=== PATIENT | female | born 1935 | race Caucasian/White ===

== ENCOUNTER → 2018-09-15 | Outpatient (CLI) | payer MEDICARE, OTHER ==
[~2018-09-15] MED LIST: AMOXICILLIN 8751 TAB PO; ASPI325T6 PO; CELEXA 20MG20 MG/TAB PO; COLACE 100100 MG/CAP PO; DULCOLAX S10 MG/SUPP RC; FERROUS SU325 MG/TAB PO; HCTZ 25MG TAB25 MG PO; LAMISIL250 MG PO; LIPITOR20 MG PO; NORCO 325 MG-51 TAB PO; NORVASC 10MG10 MG PO; OMNICEF 300MG300 MG PO; OYSCO 500500 M1 PO; TYLENOL 325MG325 MG PO
== END ==
LOC: MC.RAD 10:45
DX: Z12.31 Encounter for screening mammogram for malignant neoplasm of breast (principal)

== ENCOUNTER 2019-11-14 15:55 | Emergency (ER) | payer MEDICARE ==
[~2019-11-14] VITALS: Ht 162.6 cm; Wt 59.1 kg
[2019-11-14 15:59] VITALS: TEMP 97.1
[2019-11-14] MEDS ORDERED: WELLBUTRIN SR150 M1 PO (17:07)
[2019-11-14] MEDS ORDERED: NAMENDA XR 28MG PO (17:08)
[2019-11-14] MEDS ORDERED: ARICEPT 5MG PO (17:08)
[2019-11-14] MEDS ORDERED: CALCIUM CARBON650 M2 PO (17:09)
[2019-11-14] MEDS ORDERED: MULTI VITAMINS1 TAB PO (17:10)
[2019-11-14] MEDS ORDERED: FLAXSEED OIL1000 MG PO (17:10)
[2019-11-14] MEDS ORDERED: ASPI325T6 PO (18:29)
[2019-11-14] MEDS ORDERED: NORVASC2.5 MG PO (18:29)
[2019-11-14 19:57] VITALS: BP 165/105; PULSE 95
== END 2019-11-14 18:48 | disposition home or self-care (01) ==
LOC: COL.ER 15:55 → EDBD 15:56 → COL.ER 15:56
DX: S09.90XA Unspecified injury of head, initial encounter (principal); S70.01XA Contusion of right hip, initial encounter; Z79.82 Long term (current) use of aspirin; W17.89XA Other fall from one level to another, initial encounter; Y92.009 Unspecified place in unspecified non-institutional (private) residence as the place of occurrence of the external cause

== ENCOUNTER 2022-02-09 21:26 | Emergency (ER) | payer MEDICARE ==
[~2022-02-09] VITALS: Ht 154.9 cm; Wt 61.4 kg
[~2022-02-09 21:26] MED LIST changes: +ARICEPT 5MG PO; +CALCIUM CARBON650 M2 PO; +FLAXSEED OIL1000 MG PO; +MULTI VITAMINS1 TAB PO; +NAMENDA XR 28MG PO; +NORVASC2.5 MG PO; +WELLBUTRIN SR150 M1 PO
[2022-02-09 22:02] VITALS: TEMP 97
[2022-02-09 22:27] LABS: BASO % 0.5 % (0.0-2.0); EOS # 0.2 K/mm3 (0.0-0.7); EOS % 2.3 % (0.0-4.0); GRAN # 4.6 K/mm3 (1.4-6.5); GRAN % 60.2 % (42.2-75.2); HEMOGLOBIN 11.9 g/dl (12.5-16.0); LYMPH % 26.8 % (20.0-51.0); MEAN CELL VOLUME 93 fl (80.0-100.0); MEAN CORPUSCULAR HEMOGLOBIN 31 pg (27-31); MEAN CORPUSCULAR HGB CONC 33 g/dl (33.0-37.0); MEAN PLATELET VOLUME 9.2 fl (7.4-10.4); MONO # 0.8 K/mm3 (0.1-0.6); MONO % 9.9 % (1.7-9.3); PLATELET COUNT 281 K/mm3 (130-400); RED BLOOD COUNT 3.83 M/mm3 (4.10-5.30); REDCELL DISTRIBUTION WIDTH-CV 13.9 % (11.5-14.5)
[2022-02-09 22:28] LABS: HEMATOCRIT 35.7 % (37.0-47.0)
[2022-02-09 22:44] LABS: ALBUMIN 3.6 gm/dL (3.4-4.8); BILIRUBIN,TOTAL 0.3 mg/dL (0.2-1.2); CALCIUM 9.7 mg/dL (8.4-10.2); CREATININE, serum 1.31 mg/dL (0.57-1.11); POTASSIUM 3.1 mmol/L (3.5-4.5); TOTAL PROTEIN 7.4 gm/dL (6.2-8.1)
[2022-02-09 22:49] LABS: TROPONIN-I 0.016 ng/mL (0.00-0.033)
[2022-02-10 00:30] LABS: COLLECTION METHOD CLEAN CATCH
[2022-02-10 00:44] LABS: MUCOUS Present (NOT PRESENT); PH 6 (5-8); URINE APPEARANCE Cloudy (CLEAR/HAZY); URINE BACTERIA None Seen /hpf (NONE SEEN); URINE BILIRUBIN Negative (NEGATIVE); URINE BLOOD Negative (NEGATIVE); URINE CALCIUM OXALATE CRYSTAL Present (NOT PRESENT); URINE COLOR Yellow (YELLOW); URINE GLUCOSE Negative (NEGATIVE); URINE KETONE Negative (NEGATIVE); URINE LEUKOCYTE ESTERASE Trace (NEGATIVE); URINE NITRATE Negative (NEGATIVE); URINE PROTEIN(semi-quant) Negative (NEGATIVE); URINE UROBILINOGEN Negative (NEGATIVE)
[2022-02-10 03:16] VITALS: BP 159/77; PULSE 72
== END 2022-02-10 03:30 | disposition home or self-care (01) ==
LOC: COL.ER 21:26
PROVIDERS: Physician Assistant
DX: N17.9 Acute kidney failure, unspecified (principal); E86.0 Dehydration; E87.6 Hypokalemia; R53.81 Other malaise; Z86.16 Personal history of COVID-19
CPT/HCPCS: J0360; J2060; J7030

== ENCOUNTER 2022-04-21 12:38 | Emergency (ER) | payer MEDICARE ==
[~2022-04-21] VITALS: Ht 162.6 cm; Wt 63.6 kg
[2022-04-21 12:40] VITALS: TEMP 97.2
[2022-04-21 14:25] VITALS: BP 138/81; PULSE 67
[2022-04-21] MEDS ORDERED: WELLBUTRIN SR150 M1 PO (19:52)
== END 2022-04-21 14:25 | disposition home or self-care (01) ==
LOC: COL.ER 12:38
DX: S70.02XA Contusion of left hip, initial encounter (principal); S40.812A Abrasion of left upper arm, initial encounter; Z28.311 Partially vaccinated for COVID-19; W01.198A Fall on same level from slipping, tripping and stumbling with subsequent striking against other object, initial encounter; Y92.091 Bathroom in other non-institutional residence as the place of occurrence of the external cause

== ENCOUNTER → 2022-04-25 | Outpatient (CLI) | payer MEDICARE | LOC: COL.RAD 11:30 | DX: S32.502A Unspecified fracture of left pubis, initial encounter for closed fracture (principal) ==

== ENCOUNTER 2022-07-17 19:21 | Observation (INO) | payer MEDICARE ==
[~2022-07-17] VITALS: Wt 59.1 kg
[2022-07-17] MEDS ORDERED: NORCO 325 MG-51 TAB PO (20:18)
[2022-07-17] MEDS ORDERED: XALATAN EYE DROPS OD (20:19)
[2022-07-17] MEDS ORDERED: MIRALAX PA17 GM/Dose PO (20:19)
[2022-07-17 20:27] LABS: BASO # 0.1 K/mm3 (0.0-0.2); BASO % 0.6 % (0.0-2.0); EOS # 0.2 K/mm3 (0.0-0.7); EOS % 2.2 % (0.0-4.0); GRAN # 7.3 K/mm3 (1.4-6.5); GRAN % 76.5 % (42.2-75.2); HEMATOCRIT 39.6 % (37.0-47.0); HEMOGLOBIN 12.9 g/dl (12.5-16.0); LYMPH # 1.3 K/mm3 (1.2-3.4); LYMPH % 13.3 % (20.0-51.0); MEAN CELL VOLUME 95 fl (80.0-100.0); MEAN CORPUSCULAR HEMOGLOBIN 31 pg (27-31); MEAN CORPUSCULAR HGB CONC 33 g/dl (33.0-37.0); MEAN PLATELET VOLUME 9.7 fl (7.4-10.4); MONO # 0.6 K/mm3 (0.1-0.6); MONO % 6.5 % (1.7-9.3); PLATELET COUNT 294 K/mm3 (130-400); RED BLOOD COUNT 4.18 M/mm3 (4.10-5.30)
[2022-07-17 20:41] LABS: INR 1.1 (0.8-3.0); PROTHROMBIN TIME 12.6 SECONDS (9.7-12.8)
[2022-07-17 20:45] LABS: ALBUMIN 3.5 gm/dL (3.4-4.8); BILIRUBIN,TOTAL 0.5 mg/dL (0.2-1.2); C-REACTIVE PROTEIN 6.12 mg/dL (0.00-0.50); CALCIUM 10.6 mg/dL (8.4-10.2); CREATININE, serum 1.27 mg/dL (0.57-1.11); POTASSIUM 3.7 mmol/L (3.5-4.5); TOTAL PROTEIN 7.8 gm/dL (6.2-8.1)
[2022-07-18 00:26] VITALS: BP 155/81; PULSE 86; TEMP 97.5
[2022-07-18 04:00] VITALS: BP 132/72; PULSE 79; TEMP 97.9
[2022-07-18 06:25] LABS: BASO % 0.5 % (0.0-2.0); EOS # 0.3 K/mm3 (0.0-0.7); EOS % 3.8 % (0.0-4.0); GRAN # 4.8 K/mm3 (1.4-6.5); GRAN % 59.8 % (42.2-75.2); LYMPH # 2.1 K/mm3 (1.2-3.4); LYMPH % 26.1 % (20.0-51.0); MEAN CELL VOLUME 93 fl (80.0-100.0); MEAN CORPUSCULAR HEMOGLOBIN 30 pg (27-31); MEAN CORPUSCULAR HGB CONC 33 g/dl (33.0-37.0); MONO # 0.8 K/mm3 (0.1-0.6); MONO % 9.6 % (1.7-9.3); PLATELET COUNT 288 K/mm3 (130-400); RED BLOOD COUNT 3.95 M/mm3 (4.10-5.30); REDCELL DISTRIBUTION WIDTH-CV 15.1 % (11.5-14.5)
[2022-07-18 06:36] LABS: HEMATOCRIT 36.9 % (37.0-47.0)
[2022-07-18 06:38] LABS: CALCIUM 9.9 mg/dL (8.4-10.2); CHOLESTEROL RISK RATIO 3.9; CREATININE, serum 1.21 mg/dL (0.57-1.11); MAGNESIUM 2.2 mg/dL (1.6-2.6); POTASSIUM 3.9 mmol/L (3.5-4.5)
[2022-07-18] MEDS ORDERED: TYLENOL 325MG325 MG PO (07:32)
[2022-07-18] MEDS ORDERED: MIRALAX PA17 GM/Dose PO (07:53)
[2022-07-18] MEDS ORDERED: CENTRUM SILVER1 CTB PO (07:54)
[2022-07-18 08:03] VITALS: BP 169/71; PULSE 70; TEMP 98.5
--- NOTE | 2022-07-18 09:11 | NUR ---
Initial visit; Patient somewhat confused about where she is and how she arrived here. Regional Merchandising Manager explained she is in the hospital and possibly she will receive tests to find out why she is here. She asked if her was going to visit. I told her she is allowed visitors, not knowing her circumstances. Regional Merchandising Manager offered her God's blessings and gave her over to a Physical Therapist.
--- NOTE | 2022-07-18 11:16 | NUR ---
assembly line worker met with patient and daughter to discuss discharge planning. Patient resides at the [facility] with her and will return there upon discharge. Daughter, Martha Rojas #[phone] is at bedside. Patient will have an MRI today and if cleared medically, will return to [facility] today. Martha states that she can transport patient if necessary. Worker contacted Rita at the [facility] and advised of the above information. Rita states that their facility wheelchair van is available after Noon today if needed. Worker collaborated with patient's nurse, Cheri, regarding the above information.
--- NOTE | 2022-07-18 11:29 | NUR ---
pattern layout worker faxed clinical information to [facility].
[2022-07-18 12:00] VITALS: BP 149/71; PULSE 79; TEMP 98.1
--- NOTE | 2022-07-18 12:00 | NUR ---
Pt has had MRI and is back in her room. Radiologist discussed results with nurse Antonia. Notified JESSIE Paez that MRI was done with some acute changes. No new orders at this time
--- NOTE | 2022-07-18 14:30 | NUR ---
PT HAD AN MRI DONE, PT SLIGHTLY CONFUSED, DAUGHTER MARISOL AT BEDSIDE, DENIES PAIN, REMAINS ON ROOM AIR, DENIES SOB, NIH STROKE SCALE DONE PER PROTOCOL, PT INCONTINENT OF BOWEL AND BLADDER, CHANGED LINENS AND GOWN, PERICARE DONE, NOTED REDNESS ON THE BOTTOM, BARRIER CREAM APPLIED, WILL CONTINUE TO MONITOR.
[2022-07-18 16:00] VITALS: BP 153/71; PULSE 64; TEMP 97.7
[2022-07-18 19:47] VITALS: BP 164/90; PULSE 90; TEMP 97.9
--- NOTE | 2022-07-18 20:00 | NUR ---
PATIENT IS ORIENTED X2 AND DISPLAYS CONFUSION/FORGETFULNESS. PATIENT ASKED HER DAUGHTER SEVERAL TIMES WHERE THEY WERE AT, IF THEY WERE IN [place], AND IF WE HAVE BEEN HERE ALL DAY. NOTED HX OF DEMENTIA. LIVES IN [place] AT [place]. PATIENT ADMITED FOR R/O CVA, SEE MRI RESULTS. DAY SHIFT REPORTS PATIENT HAD PREVIOUSLY SUFFERED FROM LEFT SIDE WEAKNESS WHICH NOW SEEMS TO HAVE RESOLVED. PATIENT IS REPORTED WC BOUND [place]. PT/OT CONSULTED. INCONTINENT OF BOWL/BLADDER, PURWICK INPLACE. NO C/O N/V. PATIENT SITTING UP IN BED EATTING SUPPER. DAUGHTER REPORTS THIS IS THE BEST SHE HAS ATE IN A WHILE. HS MEDS GIVEN. HEAD TO TOE ASSESSMENT COMPLETE. VSS ON TELE. NO OTHER NEEDS AT THIS TIME. CALL LIGHT IN REACH. BED ALARM ON.
[2022-07-19] VITALS (11 sets, daily range): BP systolic 95–166; BP diastolic 63–90; PULSE 75–92; TEMP 97.6–98.6
--- NOTE | 2022-07-19 11:00 | NUR ---
PT SLIGHTLY CONFUSED, SCHEDULED FOR JERRI AT 1300, DAUGHTER SIGNED THE CONSENT AND UNDERSTOOD THE PROCEDURE TO BE DONE BY HER MOM, CHANGED PAD AND PERICARE DONE, NOTED REDNESS ON HER BOTTOM, BARRIER CREAM APPLIED, MAINTAINED ON NPO, QUESTIONS AND CONCERNS ADDRESSED, CALL LIGHT WITHIN REACH, FALL PRECAUTIONS IN PLACE, WILL CONTINUE TO MONITOR.
--- NOTE | 2022-07-19 12:35 | NUR ---
Pt off the floor for JERRI
--- NOTE | 2022-07-19 12:43 | NUR ---
Per hospitalist, patient to discharge tomorrow. Patient is scheduled to have a JERRI later today. Patient's daughter Martha present at bedside and update provided. SW contacted [facility] and spoke with Siena. Confirmed that agency is not able to transport/accept this patient on the weekend. Hospitalist notified. Patients clinical updates faxed to [facility].
--- NOTE | 2022-07-19 14:25 | NUR ---
Pt back from JERRI. She is alert and oriented to self. Pts daughter is at the bedside. Discussed diet with Dr Melendez, general diet resumed and pt/daughter made aware. VSS at this time, will continue to monitor
[2022-07-19 15:25] LABS: HEMATOCRIT 36.4 % (37.0-47.0); HEMOGLOBIN 11.8 g/dl (12.5-16.0); MEAN CELL VOLUME 95 fl (80.0-100.0); MEAN CORPUSCULAR HEMOGLOBIN 31 pg (27-31); MEAN CORPUSCULAR HGB CONC 32 g/dl (33.0-37.0); MEAN PLATELET VOLUME 9.7 fl (7.4-10.4); PLATELET COUNT 241 K/mm3 (130-400); RED BLOOD COUNT 3.83 M/mm3 (4.10-5.30); REDCELL DISTRIBUTION WIDTH-CV 15.2 % (11.5-14.5)
[2022-07-19 15:36] LABS: INR 1.1 (0.8-3.0); PROTHROMBIN TIME 13.1 SECONDS (9.7-12.8)
[2022-07-19 15:38] LABS: PARTIAL THROMBOPLASTIN TIME 33.8 SECONDS (26.0-37.0)
--- NOTE | 2022-07-19 15:58 | NUR ---
Patients clinical updates faxed to [facility]. Advised of probable discharge tomorrow.
--- NOTE | 2022-07-19 18:32 | NUR ---
PT DROWSY, ORIENTED TO SELF, ABLE TO RECOGNIZE HER AND DAUGHTER WHICH BOTH ARE AT BEDSIDE, KNOWS HER BIRTHDAY (MONTH AND DAY ONLY) SLIGHTLY LEANING TO THE RIGHT SIDE, DOESN'T WANT TO OPEN EYES WHEN ASKED BY THE NURSE, PERICARE DONE, PAD CHANGE, PUREWIC APPLIED, BARRIER CREAM APPLIED NOTED SLIGHT REDNESS ON THE BOTTOM, STARTED HEPARIN DRIP AT 1500 ORDERED, CALL LIGHT WITHIN REACH, FALL PRECAUTIONS IN PLACE.
--- NOTE | 2022-07-19 20:00 | NUR ---
PATIENT IS CONFUSED AND LIVES [place]. VSS ON TELE. HEPARIN GTT INFUSING AT 7CC/HR VIA PUMP WITH NEXT HEPXA TO BE DRAWN AT 2100. INCONTINENT OF BLADDER, PUREWICK INPLACE. 2 ASSIST. PT/OT CONSULTED. HEAD TO TOE ASSESSMENT COMPLETE. DNR STATUS. HS MEDS GIVEN. PATIENT TIRED AND READY FOR BED. LIGHTS TURNED DOWN. CALL LIGHT IN REACH. BED ALARM ON.
--- NOTE | 2022-07-19 21:34 | NUR ---
LAB CALLED CRITICAL HEPXA OF 0.90. HEPARIN GTT STOPPED X1 HOUR AND REPEAT HEPXA FOR 6 HOURS PER PROTOCOL.
[2022-07-20 00:23] VITALS: BP 160/81; PULSE 82; TEMP 98.1
[2022-07-20 03:59] VITALS: BP 148/82; PULSE 80; TEMP 98.1
[2022-07-20 07:57] VITALS: BP 146/76; PULSE 76; TEMP 98.1
[2022-07-20] MEDS ORDERED: ASPIRIN E.C. 8181 MG PO (09:13)
[2022-07-20] MEDS ORDERED: LIPITOR 40MG TA40 MG PO (09:13)
[2022-07-20] MEDS ORDERED: NORCO 325 MG-51 TAB PO (09:13)
[2022-07-20] MEDS ORDERED: LOVENOX 6060 MG/0.6 SQ (09:13)
[2022-07-20] MEDS ORDERED: COUMADIN 5MG5 MG/TAB PO (09:14)
[2022-07-20 11:08] VITALS: BP 159/71; PULSE 78; TEMP 98.1
--- NOTE | 2022-07-20 11:45 | NUR ---
MYSELF AND A PCT CHANGED AND DRESSED PATIENT, T[facility]. PATIENT LEFTIN STABLE CONDITION. TRANSFERED TO [facility] BY HER DAUGHTER. PATIENTS DAUGHTER HAD ALL BELONGINGS AND PAPERWORK. REPORT CALLED TO PATIENTS NURSE, NADEEM, AT [facility]. FULL REPORT AND QUESTIONS ANSWERED. GAVE HER MY NUMBER AND EXTENSION IN CASE ANY OTHER INFO NEEDED.
--- NOTE | 2022-07-20 11:47 | NUR ---
Patients clinical updates and discharge orders faxed to [facility]. ROJELIO contacted Rita at alf and notified of patient being ready to return.Rita verbalizes her agreement and asksk if the patient's daughter can transport the patient due to their van breaking down. ROJELIO spoke with Martha at patient's bedside and notified of the above. Martha is in agreementwith transporting the patient. Discharge plan: [facility]
== END 2022-07-20 11:45 ==
LOC: COL.ER 19:21 → SURG 23:03
PROVIDERS: Family Medicine; Internal Medicine; Student in an Organized Health Care Education/Training Program; ADMIT Hospitalist
DX: I63.9 Cerebral infarction, unspecified (principal); G81.91 Hemiplegia, unspecified affecting right dominant side; I69.920 Aphasia following unspecified cerebrovascular disease; J96.01 Acute respiratory failure with hypoxia; N17.9 Acute kidney failure, unspecified; I10 Essential (primary) hypertension; F03.90 Unspecified dementia, unspecified severity, without behavioral disturbance, psychotic disturbance, mood disturbance, and anxiety; E78.5 Hyperlipidemia, unspecified; K59.00 Constipation, unspecified; F32.A Depression, unspecified; H40.9 Unspecified glaucoma; Z66 Do not resuscitate; Z79.899 Other long term (current) drug therapy; Z20.822 Contact with and (suspected) exposure to COVID-19
CPT/HCPCS: A9575; G0378; J1644; J1650; J2704; J7030